=== PATIENT | male | born 1950 | race Caucasian/White ===

== ENCOUNTER 2022-09-15 14:10 | Inpatient (IN) | payer OTHER ==
[2022-09-15] MEDS ORDERED: CLINDAMYCIN 600MG PREMIX IVPB 600 MG/50 ML BAG IVPB ONE (15:32)
[2022-09-15 17:05] LABS: BASO % 0.8 % (0-2.0); EOS % 4.1 % (0-4.5); HEMATOCRIT 37.4 % (35.4-49); HEMOGLOBIN 12.8 GM/dL (11.7-16.9); LYMPH % 14.3 % (8-40); MCH 31.4 pg (25.7-33.7); MCHC 34.1 g/dl (32.0-35.9); MONO % 9.3 % (3.8-10.2); NEUT % 71.5 % (42.8-82.8); PLATELET COUNT 328 10^3/uL (134-434); RBC 4.07 M/mm3 (4.00-5.60); RDW 14.4 % (11.9-15.9); WHITE BLOOD COUNT 7.4 K/mm3 (4.0-10.0)
[2022-09-15 17:25] LABS: POTASSIUM 3.9 mmol/L (3.5-5.1)
[2022-09-15 17:27] LABS: INR 1.21 (0.83-1.09)
[2022-09-15 17:30] LABS: ACTIVATED PTT 29.3 SECONDS (25.2-36.5)
[2022-09-15 17:31] LABS: CALCIUM 8.6 mg/dL (8.5-10.1)
[2022-09-15 17:32] LABS: BLOOD UREA NITROGEN 11.5 mg/dL (7-18)
[2022-09-15 17:35] LABS: CREATININE 0.8 mg/dL (0.55-1.3)
[2022-09-15 17:37] LABS: BILIRUBIN,TOTAL 0.8 mg/dL (0.2-1); TOT PROT 7.2 g/dl (6.4-8.2)
[2022-09-15 17:40] LABS: N-TERMINAL BNP 77.8 pg/ml (5-125)
[2022-09-15] MEDS ORDERED: DOCUSATE SODIUM 100 MG CAPSULE (FP) PO PRN (20:05)
[2022-09-15] MEDS ORDERED: ACETAMINOPHEN 1000 MG/100 ML BAG IVPB PRN (20:09)
[2022-09-15] MEDS ORDERED: ALBUTEROL SO4 HFA INHALER IH PRN (23:38)
[2022-09-15] MEDS ORDERED: BACLOFEN 10 MG TABLET (FP) PO PRN (23:38)
[2022-09-15] MEDS ORDERED: TADALAFIL 10 MG PO SCH (23:45)
[2022-09-16] MEDS ORDERED: BACLOFEN 10 MG TABLET (FP) PO PRN (00:23)
[2022-09-16 01:13] LABS: EPI CELLS 25 /uL (0-25.1); HYALINE CASTS 1 /uL (0-3.1); URINE APPEARANCE CLEAR; URINE BACTERIA 16 /uL (0-1359); URINE BILIRUBIN NEGATIVE (NEGATIVE); URINE COLOR YELLOW; URINE GLUCOSE (UA) NEGATIVE (NEGATIVE); URINE KETONE NEGATIVE (NEGATIVE); URINE LEUK ESTERASE 1+ (NEGATIVE); URINE NITRITE NEGATIVE (NEGATIVE); URINE PROTEIN 2+ (NEGATIVE); URINE RBC 423 /uL (0-23.9); URINE WBC 158 /uL (0-25.8)
[2022-09-16] MEDS: GABAPENTIN 300 MG CAPSULE PO SCH ×3 (03:55→22:18)
[2022-09-16] MEDS: CLINDAMYCIN 600MG PREMIX IVPB 600 MG/50 ML BAG IVPB SCH ×2 (03:55→11:08)
[2022-09-16 07:14] LABS: BASO % 1.2 % (0-2.0); EOS % 7.6 % (0-4.5); HEMOGLOBIN 12.2 GM/dL (11.7-16.9); LYMPH % 25.6 % (8-40); MCH 31.8 pg (25.7-33.7); MCHC 34.7 g/dl (32.0-35.9); MEAN CELL VOLUME 91.6 fl (80-96); MEAN PLT VOLUME 7.1 fl (7.5-11.1); MONO % 14.1 % (3.8-10.2); NEUT % 51.5 % (42.8-82.8); PLATELET COUNT 308 10^3/uL (134-434); RBC 3.83 M/mm3 (4.00-5.60); RDW 13.9 % (11.9-15.9); WHITE BLOOD COUNT 5.2 K/mm3 (4.0-10.0)
[2022-09-16 07:30] LABS: POTASSIUM 3.9 mmol/L (3.5-5.1)
[2022-09-16 07:32] LABS: CALCIUM 8.5 mg/dL (8.5-10.1)
[2022-09-16 07:33] LABS: BLOOD UREA NITROGEN 10.3 mg/dL (7-18); MAGNESIUM 1.9 mg/dL (1.8-2.4)
[2022-09-16 07:36] LABS: CREATININE 0.8 mg/dL (0.55-1.3); PHOSPHOROUS 3.6 mg/dL (2.5-4.9)
[2022-09-16] MEDS: FLUTICASONE/UMECLIDIN/VILANTER(100-62.5-25 TRELEGY ELLIPTA) INAHLER IH SCH (09:33)
[2022-09-16] MEDS: MULTIVITAMINS (DAILY MVI) TABLET (FP) PO SCH (09:33)
[2022-09-16] MEDS: ESCITALOPRAM OXALATE 20 MG TABLET PO SCH (09:33)
[2022-09-16] MEDS: OMEGA-3 ACID ETHYL ESTERS (FATTY-ACIDS) 1 GM CAPSULE (FP) PO SCH ×2 (09:34→22:18)
[2022-09-16] MEDS: HYDROCHLOROTHIAZIDE 12.5 MG CAPSULE (FP) PO SCH (09:34)
[2022-09-16] MEDS: amLODIPine BESYLATE 5 MG TABLET (FP) PO SCH (09:34)
[2022-09-16] MEDS: ASPIRIN COATED 81 MG TABLET.EC PO SCH (09:34)
[2022-09-16] MEDS: METHIMAZOLE 5 MG TABLET PO SCH (09:34)
[2022-09-16] MEDS: DARUNAVIR/COB/EMTRI/TENOF (SYMTUZA) TABLET (NF) PO SCH (09:34)
[2022-09-16] MEDS: VALSARTAN 160 MG TABLET PO SCH (09:34)
[2022-09-16] MEDS ORDERED: PATIENT'S OWN MEDICATION (NON-FORMULARY) (Mirabegron [Myrbetriq] 50 MG Tab.Er.24h) PO SCH (10:00)
[2022-09-16] MEDS: CEFTRIAXONE 1 GM in DEXTROSE 5%-WATER - 50 ML IVPB SCH (12:47)
[2022-09-16 13:13] VITALS: BMI 28.8
[2022-09-16] MEDS ORDERED: ACETAMINOPHEN 325 MG TABLET (FP) PO PRN (20:05)
[2022-09-16] MEDS: MONTELUKAST NA 10 MG TABLET PO SCH (22:18)
[2022-09-16] MEDS: ATORVASTATIN CA 20 MG TABLET (FP) PO SCH (22:18)
[2022-09-16] MEDS: ARTIFICIAL TEARS (POLYVINYL ALCOHOL) OPTH DROPS OU PRN (22:54)
[2022-09-17] MEDS: ARTIFICIAL TEARS (POLYVINYL ALCOHOL) OPTH DROPS OU PRN ×2 (08:30→21:17)
[2022-09-17] MEDS: ESCITALOPRAM OXALATE 20 MG TABLET PO SCH (09:39)
[2022-09-17] MEDS: OMEGA-3 ACID ETHYL ESTERS (FATTY-ACIDS) 1 GM CAPSULE (FP) PO SCH ×2 (09:39→22:04)
[2022-09-17] MEDS: ASPIRIN COATED 81 MG TABLET.EC PO SCH (09:39)
[2022-09-17] MEDS: GABAPENTIN 300 MG CAPSULE PO SCH ×2 (09:39→21:16)
[2022-09-17] MEDS: DARUNAVIR/COB/EMTRI/TENOF (SYMTUZA) TABLET (NF) PO SCH (09:39)
[2022-09-17] MEDS: METHIMAZOLE 5 MG TABLET PO SCH (09:40)
[2022-09-17] MEDS: VALSARTAN 160 MG TABLET PO SCH (09:40)
[2022-09-17] MEDS: FLUTICASONE/UMECLIDIN/VILANTER(100-62.5-25 TRELEGY ELLIPTA) INAHLER IH SCH (09:40)
[2022-09-17] MEDS: CEFTRIAXONE 1 GM in DEXTROSE 5%-WATER - 50 ML IVPB SCH (09:40)
[2022-09-17] MEDS: MULTIVITAMINS (DAILY MVI) TABLET (FP) PO SCH (09:40)
[2022-09-17] MEDS: HYDROCHLOROTHIAZIDE 12.5 MG CAPSULE (FP) PO SCH (09:40)
[2022-09-17] MEDS: amLODIPine BESYLATE 5 MG TABLET (FP) PO SCH (09:41)
[2022-09-17] MEDS: MONTELUKAST NA 10 MG TABLET PO SCH (21:16)
[2022-09-17] MEDS: ATORVASTATIN CA 20 MG TABLET (FP) PO SCH (21:16)
[2022-09-18] MEDS: FLUTICASONE/UMECLIDIN/VILANTER(100-62.5-25 TRELEGY ELLIPTA) INAHLER IH SCH (09:34)
[2022-09-18] MEDS: METHIMAZOLE 5 MG TABLET PO SCH (09:35)
[2022-09-18] MEDS: CEFTRIAXONE 1 GM in DEXTROSE 5%-WATER - 50 ML IVPB SCH (09:35)
[2022-09-18] MEDS: HYDROCHLOROTHIAZIDE 12.5 MG CAPSULE (FP) PO SCH (09:36)
[2022-09-18] MEDS: VALSARTAN 160 MG TABLET PO SCH (09:36)
[2022-09-18] MEDS: GABAPENTIN 300 MG CAPSULE PO SCH ×2 (09:36→22:11)
[2022-09-18] MEDS: MULTIVITAMINS (DAILY MVI) TABLET (FP) PO SCH (09:36)
[2022-09-18] MEDS: amLODIPine BESYLATE 5 MG TABLET (FP) PO SCH (09:37)
[2022-09-18] MEDS: ASPIRIN COATED 81 MG TABLET.EC PO SCH (09:37)
[2022-09-18] MEDS: ESCITALOPRAM OXALATE 20 MG TABLET PO SCH (09:37)
[2022-09-18] MEDS: OMEGA-3 ACID ETHYL ESTERS (FATTY-ACIDS) 1 GM CAPSULE (FP) PO SCH ×2 (09:37→22:11)
[2022-09-18] MEDS: DARUNAVIR/COB/EMTRI/TENOF (SYMTUZA) TABLET (NF) PO SCH (09:37)
[2022-09-18] MEDS: ARTIFICIAL TEARS (POLYVINYL ALCOHOL) OPTH DROPS OU PRN (22:11)
[2022-09-18] MEDS: MONTELUKAST NA 10 MG TABLET PO SCH (22:11)
[2022-09-18] MEDS: ATORVASTATIN CA 20 MG TABLET (FP) PO SCH (22:11)
[2022-09-19] MEDS: CEFTRIAXONE 1 GM in DEXTROSE 5%-WATER - 50 ML IVPB SCH (09:19)
[2022-09-19] MEDS: MULTIVITAMINS (DAILY MVI) TABLET (FP) PO SCH (09:20)
[2022-09-19] MEDS: OMEGA-3 ACID ETHYL ESTERS (FATTY-ACIDS) 1 GM CAPSULE (FP) PO SCH (09:20)
[2022-09-19] MEDS: GABAPENTIN 300 MG CAPSULE PO SCH (09:20)
[2022-09-19] MEDS: ASPIRIN COATED 81 MG TABLET.EC PO SCH (09:20)
[2022-09-19] MEDS: HYDROCHLOROTHIAZIDE 12.5 MG CAPSULE (FP) PO SCH (09:20)
[2022-09-19] MEDS: amLODIPine BESYLATE 5 MG TABLET (FP) PO SCH (09:20)
[2022-09-19] MEDS: ESCITALOPRAM OXALATE 20 MG TABLET PO SCH (09:20)
[2022-09-19] MEDS: VALSARTAN 160 MG TABLET PO SCH (09:21)
[2022-09-19] MEDS: METHIMAZOLE 5 MG TABLET PO SCH (09:21)
[2022-09-19] MEDS: DARUNAVIR/COB/EMTRI/TENOF (SYMTUZA) TABLET (NF) PO SCH (09:21)
[2022-09-19] MEDS: FLUTICASONE/UMECLIDIN/VILANTER(100-62.5-25 TRELEGY ELLIPTA) INAHLER IH SCH (09:34)
[2022-09-19] MEDS: ARTIFICIAL TEARS (POLYVINYL ALCOHOL) OPTH DROPS OU PRN (09:34)
[2022-09-19 09:37] VITALS: BP 118/67; PULSE 67; RESP 18; TEMP 98.6
== END 2022-09-19 10:35 | disposition home or self-care (01) | DRG 603 ==
LOC: JER 14:10 → JERBED 18:36 → J7W 21:52
PROVIDERS: ADMIT Internal Medicine; ATTEND Family Medicine
DX: L03.116 Cellulitis of left lower limb (principal); B20 Human immunodeficiency virus [HIV] disease; I10 Essential (primary) hypertension; E78.5 Hyperlipidemia, unspecified; J44.9 Chronic obstructive pulmonary disease, unspecified; E05.90 Thyrotoxicosis, unspecified without thyrotoxic crisis or storm
CPT/HCPCS: 36415; 71045-TC-FY; 76775-TC; 80048; 80053; 81003; 83735; 83880; 84100; 84443; 85025; 85610; 85730; 87040; 87086; 93005; 93010; 93970-TC; 99285-25; C9803-CS; U0003; U0005